=== PATIENT | male | born 1950 | race Caucasian/White ===

== ENCOUNTER 2016-11-19 21:39 | Emergency (ER) | payer MEDICARE ==
[~2016-11-19] VITALS: Ht 170.2 cm; Wt 78.0 kg
--- NOTE | 2016-11-19 22:13 | PHYS DOC ---
Past Medical History Past Medical History: CAD, High Cholesterol, Hypertension, [place] Past Surgical History: Other Additional Past Surgical Histo: bilateral shoulder surgery Adult General Chief Complaint Chief Complaint: SHOULDER INJURY HPI HPI Patient is a 66 year old male presents emergency department stating that he has having right shoulder pain and discomfort. He states that he was lying in bed watching TV when he got up the shoulder was hurting. He denies any injury or trauma to the shoulder. He did states he has some numbness and tingling down to the hand and feels like it swelling. 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 He does have good sensation to the hand and to the upper arm. He does have decreased range of motion. Peripheral pulses are 2+ cap refill brisk less than 2 seconds. Patient does state he's had a shoulder replacement in the past. Patient is right-hand dominant. Review of Systems Review of Systems Constitutional: Denies fever or chills [] Eyes: Denies change in visual acuity, redness, or eye pain [] HENT: Denies nasal congestion or sore throat [] Respiratory: Denies cough or shortness of breath [] Cardiovascular: No additional information not addressed in HPI [] GI: Denies abdominal pain, nausea, vomiting, bloody stools or diarrhea [] : Denies dysuria or hematuria [] Musculoskeletal: Denies back pain. C/o right shoulder pain Integument: Denies rash or skin lesions [] Neurologic: Denies headache, focal weakness or sensory changes [] Endocrine: Denies polyuria or polydipsia [] Current Medications Current Medications Current Medications Medications (Trade) Dose Ordered Sig/[facility] Start Time Stop Time Status Last Admin Dose Admin Acetaminophen/ Hydrocodone Bitart (Lortab 5/325) 1 tab 1X ONCE 11/19/16 22:30 11/19/16 22:31 DC 11/19/16 22:30 1 TAB Allergies Allergies Allergies Coded Allergies Type Severity Reaction Last Updated Verified No Known Drug Allergies 11/19/16 No Physical Exam Physical Exam Constitutional: Well developed, well nourished, no acute distress, non-toxic appearance. [] HENT: Normocephalic, atraumatic, bilateral external ears normal, oropharynx moist, no oral exudates, nose normal. [] Eyes: PERRLA, EOMI, conjunctiva normal, no discharge. [] Neck: Normal range of motion, no tenderness, supple, no stridor. [] Cardiovascular:Heart rate regular rhythm, no murmur [] Lungs & Thorax: Bilateral breath sounds clear to auscultation [] Skin: Warm, dry, no erythema, no rash. [] Back: No tenderness Extremities: Right shoulder tenderness, no cyanosis, no clubbing, ROM intact, no edema. Decreased range of motion to the right shoulder. Patient with sensation noted bilaterally. Patient with slightly lesser kosher dietary service supervisor noted on the right. Peripheral pulses 2+ cap refill brisk less than 2 seconds. Neurologic: Alert and oriented X 3, normal motor function, normal sensory function, no focal deficits noted. [] Psychologic: Affect normal, judgement normal, mood normal. [] Current Patient Data Vital Signs Vital Signs Date Time Temp Pulse Resp B/P (MAP) Pulse Ox O2 Delivery O2 Flow Rate FiO2 11/19/16 22:15 98.2 87 16 95 Room Air 98.2 EKG EKG [] Radiology/Procedures Radiology/Procedures [] Course & Med Decision Making Course & Med Decision Making Pertinent Labs and Imaging studies reviewed. (See chart for details) X-rays were negative for any abnormalities. No dislocation noted per Dr. Rocha. Patient was placed in a sling he'll be discharged home with recommendations to continue with Aleve. Ice packs on 20 minutes off 20 minutes several times a day. Patient agrees with discharge instructions treatment regimens and follow-up recommendations. He'll be provided with Dr. Cooper to follow up with. Patient was provided with signs and symptoms to return back to emergency department. [] Dragon Disclaimer Dragon Disclaimer This electronic medical record was generated, in whole or in part, using a voice recognition dictation system. Departure Departure Impression: Primary Impression: Shoulder pain, right Disposition: 01 HOME, SELF-CARE Condition: STABLE Referrals: CORNELIUS COOPER MD, TIMOTHY J MD Patient Instructions: Arm Sling Use-Brief, Shoulder Pain, [id number] Additional Instructions: Your x-rays were normal for any dislocations. Ice packs on 20 minutes off 20 minutes several times a day. Continue with the Aleve as prescribed by the marketing team lead. Wear the sling until you follow-up with orthopedic. Take the arm out of the sling several times a day and perform active range of motion. Follow-up with orthopedic in the next 3-5 days. Return back to emergency prior signs symptoms of become worse. BOOGIE CUENCA BIOLOGY LABORATORY ASSISTANT November 19, 2016 22:13
[2016-11-19 22:15] VITALS: BP 127/71
[2016-11-19] MEDS ORDERED: HYDROcodone/APAP 5/325MG 1 TAB TABLET PO ONE (22:30)
--- NOTE | 2016-11-20 07:06 | RAD ---
Indication: Right shoulder pain. Time of exam 2224 hours. Comparison is made with prior radiographs from 11/30/2009. Postop changes of right shoulder arthroplasty are noted. The prosthetic elements appear to be in stable position. Acromioclavicular alignment is normal. No fractures are seen. There appear to be interstitial changes throughout the right lung. Impression: Stable appearance to the right shoulder. No acute feature detected.
== END 2016-11-19 22:50 | disposition home or self-care (01) ==
LOC: ER 21:39
DX: M25.511 Pain in right shoulder (principal); R20.0 Anesthesia of skin; R20.2 Paresthesia of skin; I25.10 Atherosclerotic heart disease of native coronary artery without angina pectoris; E78.00 Pure hypercholesterolemia, unspecified; I25.2 Old myocardial infarction; I10 Essential (primary) hypertension; Z96.611 Presence of right artificial shoulder joint
CPT/HCPCS: 73030; 99284